=== PATIENT | male | born 1960 ===

== ENCOUNTER 2017-09-16 10:01 | Inpatient (IN) ==
[2017-09-16 13:32] LABS: Basophils % 0.4 % (0.0-0.8); Eosinophils # 1.6 10*3/uL (0.0-0.87); Hemoglobin 7.2 GM/DL (14.0-18.0); Immature Granulocytes % 0.4 %; Immature Granulocytes Absolute 0.03 #; Lymphocytes # 0.4 10*3/uL (1.4-4.0); Lymphocytes % 5.8 % (21.2-54.2); Mean Corpuscular HGB Conc 32.7 GM/DL (32-36); Mean Corpuscular Hemoglobin 32 PG (27-34); Mean Corpuscular Volume 99.1 FL (87-102); Monocytes # 0.5 10*3/uL (0.11-0.8); Monocytes % 6.9 % (1.7-12.7); Neutrophils # 4.6 10*3/uL (1.4-7.4); Neutrophils % 64.5 % (38.7-73.9); Platelet Count 137 T/CUMM (130-400); Red Blood Count 2.22 MC/CUMM (3.8-5.5); Red Cell Distribution Width 14.6 % (9.3-17.3); White Blood Count 7.1 T/CUMM (4-12)
[2017-09-16 14:01] LABS: Osmolality,Calculated 306.3 MOS/KG (273-304); Potassium 4.8 MMOL/L (3.5-5.1)
[2017-09-16] MEDS ORDERED: GLUCAGON 1 MG VIAL IM PRN (14:53)
[2017-09-16] MEDS ORDERED: DEXTROSE 50% 25 GM/50 ML VIAL IV PRN (14:53)
[2017-09-16 14:55] LABS: Hepatitis A Ab IgM Quant 0.07 Index; Hepatitis A Ab IgM Result Negative (Negative); Hepatitis B Core IgM Quant 0.17 Index; Hepatitis B Core IgM Result Negative (Negative); Hepatitis B Surface Ag Quant < 0.10 Index; Hepatitis B Surface Ag Result Negative (Negative); Hepatitis C Virus Ab Quant 0.07 Index; Hepatitis C Virus Ab Result Negative (Negative)
[2017-09-16 16:19] LABS: Band Neutrophils 6 % (0-10); Eosinophils 19 % (0-10); Lymphocytes 9 % (20-55); Segmented Neutrophils 59 % (50-85); Total Cells Counted 100
[2017-09-16 16:20] LABS: Platelet Estimate Normal
[2017-09-16 16:54] LABS: PT Patient Result 10.7 SECS; Partial Thromboplastin Time 27.3 SECS (0-40)
[2017-09-16] MEDS: INSULIN LISPRO 100 UNIT/ML SUBCUT SCH ×2 (17:08→21:39)
[2017-09-16 19:42] LABS: Troponin I Only 0.341 NG/ML (0.00-0.045)
[2017-09-16] MEDS: CARVEDILOL 6.25 MG TABLET PO SCH (21:39)
[2017-09-17 01:25] LABS: Basophils % 0.6 % (0.0-0.8); Eosinophils # 1.4 10*3/uL (0.0-0.87); Hematocrit 21.9 VOL% (42.0-52.0); Immature Granulocytes % 0.5 %; Immature Granulocytes Absolute 0.03 #; Lymphocytes # 0.5 10*3/uL (1.4-4.0); Lymphocytes % 7.6 % (21.2-54.2); Mean Corpuscular Hemoglobin 31 PG (27-34); Mean Corpuscular Volume 97.8 FL (87-102); Mean Platelet Volume 9.2 FL (9.6-12.0); Monocytes # 0.5 10*3/uL (0.11-0.8); Monocytes % 7.8 % (1.7-12.7); Neutrophils % 61.5 % (38.7-73.9); Platelet Count 152 T/CUMM (130-400); Red Blood Count 2.24 MC/CUMM (3.8-5.5); Red Cell Distribution Width 14.1 % (9.3-17.3); White Blood Count 6.6 T/CUMM (4-12)
[2017-09-17 01:42] LABS: Calcium 7.3 MG/DL (8.5-10.1); Osmolality,Calculated 306.3 MOS/KG (273-304); Potassium 4.9 MMOL/L (3.5-5.1)
[2017-09-17 01:43] LABS: Albumin 3.6 G/DL (3.4-5.0); Calcium 7.2 MG/DL (8.5-10.1); Osmolality,Calculated 304.4 MOS/KG (273-304); Potassium 4.9 MMOL/L (3.5-5.1)
[2017-09-17 01:50] LABS: Risk Ratio 2.95; VLDL CHOLESTEROL 16.8 MG/DL
[2017-09-17 01:57] LABS: Troponin I Only 0.318 NG/ML (0.00-0.045)
[2017-09-17 02:25] LABS: Band Neutrophils 3 % (0-10); Eosinophils 12 % (0-10); Lymphocytes 8 % (20-55); Macrocytosis 2+; Platelet Estimate Normal; Segmented Neutrophils 75 % (50-85); Total Cells Counted 100
[2017-09-17] MEDS ORDERED: hydrALAZINE 25 MG TABLET PO SCH (09:00)
[2017-09-17] MEDS ORDERED: CARVEDILOL 12.5 MG TABLET PO SCH (09:00)
[2017-09-17] MEDS ORDERED: ISOSORBIDE MONONITRATE PO SCH ×2 (09:00)
[2017-09-17] MEDS: BRIMONIDINE 0.2% OPH SOLN 5 ML BOTTLE LEFT EYE SCH ×2 (09:11→21:31)
[2017-09-17] MEDS: SODIUM BICARBONATE 650 MG TABLET PO SCH ×2 (09:12→21:28)
[2017-09-17] MEDS: INSULIN LISPRO 100 UNIT/ML SUBCUT SCH ×4 (09:12→23:18)
[2017-09-17] MEDS: FUROSEMIDE 80 MG TABLET PO SCH ×3 (09:12→21:28)
[2017-09-17] MEDS: ASPIRIN EC 81 MG TABLET PO SCH (09:12)
[2017-09-17] MEDS: LISINOPRIL 10 MG TABLET PO SCH ×2 (09:12→11:35)
[2017-09-17] MEDS: CARVEDILOL 6.25 MG TABLET PO SCH ×3 (09:12→16:49)
[2017-09-17] MEDS ORDERED: LIDOCAINE 1% 5 ML VIAL ONE (10:41)
[2017-09-17] MEDS ORDERED: TISSUE ADHESIVE 1 EACH APPLICATOR TOP ONE (10:41)
[2017-09-17] MEDS ORDERED: HEPARIN 5,000 UNIT/1 ML VIAL ONE (10:41)
[2017-09-17] MEDS ORDERED: BUPIVACAINE 0.25% 50 ML VIAL ONE (10:41)
[2017-09-17] MEDS: SODIUM CHLORIDE 0.9% 250 ML IV SCH ×2 (12:20→16:49)
[2017-09-17] MEDS ORDERED: ceFAZolin 1,000 MG VIAL ONE (12:33)
[2017-09-17] MEDS ORDERED: GLUCAGON 1 MG VIAL IM PRN (13:10)
[2017-09-17] MEDS ORDERED: MIDAZOLAM 2 MG/2 ML VIAL ONE (13:25)
[2017-09-17] MEDS ORDERED: PROPOFOL 200 MG/20 ML VIAL IV ONE (13:25)
[2017-09-17] MEDS ORDERED: KETAMINE 500 MG/10 ML VIAL ONE (13:26)
[2017-09-17] MEDS: ISOSORBIDE MONONITRATE 30 MG TABLET PO SCH ×2 (16:49→21:28)
[2017-09-18 04:32] LABS: Basophils % 0.5 % (0.0-0.8); Eosinophils # 1.6 10*3/uL (0.0-0.87); Eosinophils % 19.5 % (0.00-10.9); Hematocrit 24.1 VOL% (42.0-52.0); Hemoglobin 8.4 GM/DL (14.0-18.0); Immature Granulocytes % 0.5 %; Immature Granulocytes Absolute 0.04 #; Lymphocytes # 0.3 10*3/uL (1.4-4.0); Mean Corpuscular HGB Conc 34.9 GM/DL (32-36); Mean Corpuscular Hemoglobin 32 PG (27-34); Mean Corpuscular Volume 92.3 FL (87-102); Mean Platelet Volume 9.6 FL (9.6-12.0); Monocytes # 0.6 10*3/uL (0.11-0.8); Monocytes % 7.5 % (1.7-12.7); Neutrophils # 5.5 10*3/uL (1.4-7.4); Platelet Count 170 T/CUMM (130-400); Red Blood Count 2.61 MC/CUMM (3.8-5.5); Red Cell Distribution Width 14.1 % (9.3-17.3)
[2017-09-18] MEDS: SODIUM CHLORIDE 0.9% 250 ML IV SCH ×2 (04:38→16:24)
[2017-09-18 04:46] LABS: Calcium 7.5 MG/DL (8.5-10.1); Osmolality,Calculated 294.5 MOS/KG (273-304); Potassium 4.2 MMOL/L (3.5-5.1)
[2017-09-18 04:48] LABS: Albumin 3.8 G/DL (3.4-5.0); Calcium 7.5 MG/DL (8.5-10.1); Osmolality,Calculated 293.5 MOS/KG (273-304); Potassium 4.2 MMOL/L (3.5-5.1)
[2017-09-18 05:24] LABS: Eosinophils 13 % (0-10); Lymphocytes 2 % (20-55); Platelet Estimate Normal; Segmented Neutrophils 73 % (50-85); Total Cells Counted 100
[2017-09-18 05:25] LABS: Giant Platelets Few; Hypochromasia 1+
[2017-09-18] MEDS: FUROSEMIDE 80 MG TABLET PO SCH ×2 (10:12→22:19)
[2017-09-18] MEDS: LISINOPRIL 5 MG TABLET PO SCH (10:12)
[2017-09-18] MEDS: CARVEDILOL 6.25 MG TABLET PO SCH ×2 (10:12→16:24)
[2017-09-18] MEDS: SPIRONOLACTONE 25 MG TABLET PO SCH (10:12)
[2017-09-18] MEDS: ASPIRIN EC 81 MG TABLET PO SCH (10:12)
[2017-09-18] MEDS: BRIMONIDINE 0.2% OPH SOLN 5 ML BOTTLE LEFT EYE SCH ×2 (10:12→22:23)
[2017-09-18] MEDS: ISOSORBIDE MONONITRATE 30 MG TABLET PO SCH ×3 (10:12→22:20)
[2017-09-18] MEDS: INSULIN LISPRO 100 UNIT/ML SUBCUT SCH ×4 (10:12→22:20)
[2017-09-18] MEDS: SODIUM BICARBONATE 650 MG TABLET PO SCH ×2 (10:13→22:20)
[2017-09-18] MEDS: CARVEDILOL 12.5 MG TABLET PO SCH (22:19)
[2017-09-19] MEDS: SODIUM CHLORIDE 0.9% 250 ML IV SCH ×2 (03:42→21:54)
[2017-09-19 06:28] LABS: Basophils # 0.1 10*3/uL (0.0-0.2); Basophils % 0.7 % (0.0-0.8); Eosinophils # 1.5 10*3/uL (0.0-0.87); Eosinophils % 20.6 % (0.00-10.9); Hematocrit 23.9 VOL% (42.0-52.0); Hemoglobin 7.9 GM/DL (14.0-18.0); Immature Granulocytes % 0.6 %; Immature Granulocytes Absolute 0.04 #; Lymphocytes # 0.5 10*3/uL (1.4-4.0); Mean Corpuscular HGB Conc 33.1 GM/DL (32-36); Mean Corpuscular Hemoglobin 32 PG (27-34); Mean Corpuscular Volume 96.4 FL (87-102); Mean Platelet Volume 9.4 FL (9.6-12.0); Monocytes % 13.5 % (1.7-12.7); Neutrophils # 4.1 10*3/uL (1.4-7.4); Neutrophils % 57.6 % (38.7-73.9); Platelet Count 153 T/CUMM (130-400); Red Blood Count 2.48 MC/CUMM (3.8-5.5); Red Cell Distribution Width 14.3 % (9.3-17.3)
[2017-09-19 06:57] LABS: Albumin 3.7 G/DL (3.4-5.0); Calcium 7.6 MG/DL (8.5-10.1); Osmolality,Calculated 284.7 MOS/KG (273-304); Potassium 4.5 MMOL/L (3.5-5.1)
[2017-09-19 07:11] LABS: Calcium 7.6 MG/DL (8.5-10.1); Osmolality,Calculated 282.8 MOS/KG (273-304); Potassium 4.3 MMOL/L (3.5-5.1)
[2017-09-19 07:26] LABS: Eosinophils 18 % (0-10); Giant Platelets Few; Hypochromasia 1+; Lymphocytes 11 % (20-55); Platelet Estimate Normal; Segmented Neutrophils 60 % (50-85); Total Cells Counted 100
[2017-09-19] MEDS: ASPIRIN EC 81 MG TABLET PO SCH (08:32)
[2017-09-19] MEDS: CARVEDILOL 12.5 MG TABLET PO SCH ×2 (08:32→21:52)
[2017-09-19] MEDS: SODIUM BICARBONATE 650 MG TABLET PO SCH ×2 (08:32→21:52)
[2017-09-19] MEDS: SPIRONOLACTONE 25 MG TABLET PO SCH (08:32)
[2017-09-19] MEDS: ISOSORBIDE MONONITRATE 30 MG TABLET PO SCH ×3 (08:32→21:53)
[2017-09-19] MEDS: FUROSEMIDE 80 MG TABLET PO SCH ×2 (08:32→21:53)
[2017-09-19] MEDS: LISINOPRIL 5 MG TABLET PO SCH (08:32)
[2017-09-19] MEDS: INSULIN LISPRO 100 UNIT/ML SUBCUT SCH ×4 (08:32→21:53)
[2017-09-19] MEDS: BRIMONIDINE 0.2% OPH SOLN 5 ML BOTTLE LEFT EYE SCH ×2 (08:33→21:54)
[2017-09-20] MEDS: INSULIN LISPRO 100 UNIT/ML SUBCUT SCH ×3 (08:18→18:08)
[2017-09-20] MEDS: SODIUM CHLORIDE 0.9% 250 ML IV SCH (08:30)
[2017-09-20] MEDS ORDERED: SODIUM CHLORIDE 0.9% 1,000 ML IV PRN (08:34)
[2017-09-20] MEDS: CARVEDILOL 12.5 MG TABLET PO SCH (09:22)
[2017-09-20] MEDS: SODIUM BICARBONATE 650 MG TABLET PO SCH (09:22)
[2017-09-20] MEDS: SPIRONOLACTONE 25 MG TABLET PO SCH (09:22)
[2017-09-20] MEDS: LISINOPRIL 5 MG TABLET PO SCH (09:23)
[2017-09-20] MEDS: ISOSORBIDE MONONITRATE 30 MG TABLET PO SCH ×2 (09:23→17:04)
[2017-09-20] MEDS: BRIMONIDINE 0.2% OPH SOLN 5 ML BOTTLE LEFT EYE SCH (09:23)
[2017-09-20] MEDS: FUROSEMIDE 80 MG TABLET PO SCH (09:23)
[2017-09-20] MEDS: ASPIRIN EC 81 MG TABLET PO SCH (09:23)
[2017-09-20 18:05] VITALS: BP 124/68
[2017-09-20] MEDS ORDERED: ROSUVASTATIN 10 MG TABLET PO SCH (21:00)
== END 2017-09-20 19:26 | disposition home or self-care (01) | DRG 981 ==
LOC: SUATTDRO 10:01 → N.5E 11:50
PROVIDERS: ADMIT Internal Medicine